=== PATIENT | female | born 1975 | race Caucasian/White ===

== ENCOUNTER 2016-06-12 15:14 | Inpatient (IN) | payer OTHER ==
--- NOTE | ~2016-06-12 | BMI ---
[facility] Nutrition Therapy DATE: 06/13/16 Patient: ELAN HENRY Physician: KING Address: [address] [place] [address] Room/Bed: [address] [place] [address], Zip: [place] [address] Admit Date: 06/12/16 Date of : [birth year] Height: 5 4 Weight: 256 116.5 HIGH BMI NOTE: DX: 40 Y.O. FEMALE ADMITTED FOR DIVERTICULITIS ANTHROPOMETRICS: 5'4", WT: 256# (116 KG), BMI: 43.9 DIET: HH INTERVENTION: 1. DIET RECOMMENDATIONS: 1. CONTINUE CURRENT DIET ORDER ABOVE TO PROMOTE GRADUAL WEIGHT LOSS TOWARDS HEALTHY BMI (19.0-25.0) OR +/-10%IBW RD WILL F/U PER PROTOCOL Respectfully, RAYNE ROWE MS, RD, LD Food and Nutritional Services [facility] cc: client file
--- NOTE | ~2016-06-12 | DS ---
Unit #: [id number] #: [id number] Patient: ELAN HENRY [id number] [address] [address] [id number] I MR#: [id number] NAME: ELAN HENRY ROOM: 306 Age: 40 Sex: F Admission Date: 06/12/2016 : 1975 Discharge Date: 06/13/2016 Attending Physician: Aminah Quintanilla M.D. Primary Care Physician: Nila Peters M.D. DISCHARGE SUMMARY ADDENDUM Time spent on discharge - 47 minutes. Dictated by... Aminah Quintanilla M.D. YESSENIA/aleshia TD: 06/15/2016 08:05 JOB #: [id number] DISCHARGE SUMMARY X Aminah Quintanilla MD X DISCHARGE SUMMARY
--- NOTE | ~2016-06-12 | DS ---
Unit #: [id number] #: [id number] Patient: ELAN HENRY [id number] [address] [place], [place] [address] [id number] I MR#: [id number] NAME: ELAN HENRY ROOM: 306 Age: 40 Sex: F Admission Date: 06/12/2016 : 1975 Discharge Date: 06/13/2016 Attending Physician: Aminah Quintanilla M.D. Primary Care Physician: Nila Peters M.D. DISCHARGE SUMMARY PRINCIPAL DIAGNOSES 1. Extensive right lower extremity deep vein thrombosis of the right femoral vein and right deep femoral vein. 2. Prothrombin gene mutation, currently off anticoagulation. 3. Hypertension. 4. Bipolar disorder. 5. Tobaccoism. 6. Morbid obesity. CONSULTANTS None. DIAGNOSTIC STUDIES IMAGING: Right lower extremity venous Doppler on June 12, 2016 with occlusive thrombus in the right femoral and deep femoral veins. Right common femoral vein is patent. Questionable occlusive thrombus in the distal right common femoral vein that is unclear. No DVT involving the calf vessels. No evidence of superficial venous thrombosis. CLINICAL HISTORY AND HOSPITAL COURSE Ms. Henry is a very nice 40-year-old female with a history of prothrombin gene mutation and multiple DVT and PE who presented to the emergency department with an approximate 5-week history of increasing right lower extremity swelling and pain. Please refer to H and P for further details. The patient is not having any chest pain, is not having any shortness of breath, nor is she having any hypoxia. Lower extremity venous Doppler in the emergency department was significant for DVT, and the patient was subsequently admitted. The patient has been maintained on therapeutic Lovenox overnight and states that her swelling and pain have improved. She still denies any chest symptoms and has not had any hypoxia. Discussion with the patient indicates she was taken off anticoagulation 6 to 7 years ago by a fish dressing machine feeder because she had not had any recent clots. However, she has had multiple DVT and PE in the past, and with her known gene mutation, she should be maintained on lifelong anticoagulation. I have discussed options with the patient, and while hesitant, she is agreeable to beginning Xarelto therapy. If she decides she does not like it, she is willing to go back to warfarin therapy on an outpatient basis. Her main concern is antidotal therapy, but I have informed her that this is currently in the process and studies indicate much less bleeding, both GI and intracranial, on the new oral anticoagulants compared to Coumadin. She will be discharged home later today. Unit #: [id number] #: [id number] Patient: ELAN HENYR DISCHARGE CONDITION Stable. DISCHARGE STATUS Discharge to home. DISCHARGE MEDICATIONS 1. Xarelto 15 mg p.o. b.i.d. for 21 days and then 20 mg p.o. daily. (I did write her 2 months worth of prescriptions.) 2. Topamax 25 mg at 7:30 p.m. 3. Cozaar 50 mg at 7:30 p.m. 4. Percocet 5/325 mg 1 tablet q.4 hours p.r.n. pain (# given 15). DISCHARGE INSTRUCTIONS Patient was instructed to refrain from any further tobacco use. She can increase her activity as tolerated, although we have discussed, perhaps, taking it easy over the next several days. FOLLOW-UP Patient will follow up with Dr. Peters in 1 week. NOTE: Time spent on discharge - 40 minutes. Dictated by... Aminah Quintanilla M.D. YESSENIA/lissa TD: 06/15/2016 07:57 JOB #: [id number] DISCHARGE SUMMARY X Aminah Quintanilla MD X DISCHARGE SUMMARY
--- NOTE | ~2016-06-12 | HP ---
Unit #: [id number] #: [id number] Patient: ELAN HENRY [id number] [address] [place], [place] [address] [id number] I MR#: [id number] NAME: ELAN HENRY ROOM: 306 Age: 40 Sex: F Admission Date: 06/12/2016 : 1975 Attending Physician: Kennedi Mark M.D. Primary Care Physician: Nila Peters M.D. HISTORY AND PHYSICAL CHIEF COMPLAINT Swelling and pain in the right leg. HISTORY OF PRESENT ILLNESS The patient is a 40-year-old female with a history of a profound prothrombin gene mutation and history of multiple DVTs and PEs in the past, off of the Coumadin for the last six to seven years, brought to the emergency room complaining of the swelling and pain of the right leg. The patient stated patient had an EP study done on May 09 for arrhythmias at the [facility] and then she started having complaining of the pain. The patient initially thought that the pain was secondary to the leg swelling and was gradually progressing to the point that she could not take it anymore. The patient denies any chest pain, shortness of breath, palpitation, headache or dizziness. The patient denies any fever. PAST MEDICAL HISTORY History of a bipolar disorder, asthma and history of prothrombin gene mutation and PEs and DVTs in the past. PAST SURGICAL HISTORY History of a cholecystectomy, and tubal ligations. HOME MEDICATIONS She is on losartan and Topamax. ALLERGIES Sulfa. FAMILY HISTORY There is no known family history of hypercoagulability. SOCIAL HISTORY The patient smokes a pack of cigarettes daily, does not consume alcohol. There is no history of recreational drug use. REVIEW OF SYMPTOMS Fourteen-point review of symptoms performed and only pertinent positive findings as described above, remaining are negative. PHYSICAL EXAMINATION GENERAL APPEARANCE: On examination the patient is lying on a bed not in acute distress. VITAL SIGNS: Temperature 97.8, pulse 95, respiratory rate 16, blood Unit #: [id number] #: [id number] Patient: ELAN HENRY pressure 123/62, sating 100% at room air. HEENT: Head atraumatic, normocephalic. Pupils equal, round and reacting to light and accommodation. Extraocular movements are intact. NECK: Supple. No JVD. LUNGS: Clear to auscultation bilaterally. No rhonchi. No wheezing. HEART: Regular rate and rhythm. ABDOMEN: Soft, positive bowel sounds. EXTREMITIES: Right lower extremity tenderness and pain in the thigh muscles and minimal erythema. NEUROLOGIC: Alert, awake, oriented. No gross focal motor deficit. PSYCHIATRIC: Mood and affect are appropriate. DIAGNOSTIC STUDIES LABORATORY DATA: Glucose 89, BUN 9, creatinine 0.8, sodium 139, potassium 3.7, chloride 104, bicarb 24, calcium 8.8, total protein 7, total bilirubin 0.3, AST 14, ALT 16, alkaline phosphatase 79 and beta hCG is negative and INR is 0.9, troponin less than 0.05, WBC 8.2, hemoglobin 13.2, hematocrit 39.4, platelets 172. IMAGING: The Doppler shows occlusive thrombus in the right femoral and deep femoral veins. ASSESSMENT 1. The right leg deep vein thrombosis with occlusive thrombus in the right femoral and deep vein thrombosis. 2. Prothrombin gene mutation. 3. Hypertension. PLAN 1. Plan to admit the patient to the inpatient. 2. Continue with anticoagulation with the Lovenox 1 mg/kg subcu q.12 h. then transition to the Coumadin. 3. Repeat the labs again in the morning. 4. Further recommendations will follow as more lab results are available. Dictated by Zeus Sparrow/patrick TD: 06/12/2016 18:05 JOB #: [id number] HISTORY AND PHYSICAL X X HISTORY AND PHYSICAL
--- NOTE | ~2016-06-12 | US85 ---
[facility] A Service of [facility] & [facility] RADIOLOGY TEXT RESULTS PATIENT: ELAN HENRY LOCATION: A 306- : [birth year] UNIT #: [id number] AGE: [address]: Aminah Quintanilla MD SEX: F ORDER DR: [id number] [facility] [address] [place], [place] [address] [id number] I MR#: [id number] Acc #: [id number] NAME: ELAN HENRY : 1975 SEX: F STUDY DATE/TIME: 06/12/2016 13:59 UNIT: A [facility] ROOM: [facility] STUDY DESCRIPTION: US LE Veins Unilat or Ltd Stdy Attending Physician: Kennedi Mark M.D. Ordering Physician: Shaun Castro M.D. Primary Care Physician: Nila Peters M.D. MEDICAL IMAGING REPORT This report is preliminary unless electronic signature is present EXAM Right lower extremity venous Doppler INDICATION Pain in the right leg since May 08 this began after an EP study. Patient also reports swelling. TECHNIQUE Burris-scale color Doppler and spectral Doppler waveform analysis was performed through the right lower extremity. FINDINGS This patient is noted to have occlusive thrombus within the right femoral vein and right deep femoral vein, salesperson corsets denotes that the right common femoral vein is patent and compressible. However on some of the images there does appear to be some extension of thrombus into the right common femoral vein. The patient's right popliteal, posterior tibial anterior tibial peroneal and saphenous veins were all patent and compressible. IMPRESSION Patient is noted to have occlusive thrombus within the right femoral and deep femoral veins. Cushion Assembler denotes the right common femoral vein is patent and compressible, however on some of the images there does appear to be occlusive thrombus within the right common femoral vein. Certainly this is not excluded, there is no evidence of DVT involving the calf vessels and there is no evidence of SVT Dictated by... Olivia Mar M.D. THIS IS AN ELECTRONICALLY VERIFIED REPORT Olivia Mar M.D. at 06/18/2016 1:15 PM [facility]. [facility] A Service of [facility] & [facility] RADIOLOGY TEXT RESULTS PATIENT: ELAN HENRY LOCATION: [facility] 306-01 : [birth year] UNIT #: [id number] AGE: [address]: Aminah Quintanilla MD SEX: F ORDER DR: SERGIO/rnr TD: 06/12/2016 21:52 JOB #: [id number] MEDICAL IMAGING REPORT COPY
[2016-06-12 14:05] LABS: BASOPHIL# 0.1 X10e3 (0-0.3); BASOPHIL% 0.9 % (0-2.5); EOSINOPHIL# 0.6 X10e3 (0-0.7); EOSINOPHIL% 6.9 % (0.0-7.0); HEMATOCRIT 39.4 % (35.0-45.0); HEMOGLOBIN 13.2 gm/dL (12.0-16.0); LYMPHOCYTE# 2.6 X10e3 (1.0-3.5); LYMPHOCYTE% 31.6 % (17.0-45.0); MEAN CELL VOLUME 83.7 FL (83-96); MEAN CORPUSCULAR HEMOGLOBIN 28.1 PG (28-34); MEAN CORPUSCULAR HGB CONC 33.6 g/dL (30-36); MEAN PLATELET VOLUME 10.3 FL (6.5-11.5); MONOCYTE# 0.3 X10e3 (0-1.0); MONOCYTE% 3.9 % (3.0-12.0); NEUTROPHIL# 4.7 X10e3 (1.5-7.1); NEUTROPHIL% 56.7 % (40-75); PLATELET COUNT 172 X10e3 (140-420); RED CELL DISTRIBUTION WIDTH 13.3 % (11.0-15.5); WHITE BLOOD COUNT 8.2 X10e3 (4.0-10.5)
[2016-06-12 14:11] LABS: DIFF IND NO
[2016-06-12 14:22] LABS: INR 0.9; PARTIAL THROMBOPLASTIN TIME 26.1 SECONDS (23.5-31.3); PROTHROMBIN TIME (PATIENT) 9.6 SECONDS (9.6-11.5)
[2016-06-12 14:29] LABS: ALKALINE PHOSPHATASE 79 U/L (32-92); ALT (SGPT) 16 U/L (10-40); AST (SGOT) 14 U/L (10-42); BILIRUBIN, DIRECT 0.1 mg/dL (0.0-0.2); BILIRUBIN,INDIRECT 0.2 mg/dL (0.0-0.9); BILIRUBIN,TOTAL 0.3 mg/dL (0.2-2.0); BLOOD UREA NITROGEN 9 mg/dL (9-23); BUN/CREATININE RATIO 11.25; CALCIUM SERUM 8.8 mg/dL (8.4-10.2); CARBON DIOXIDE 24 mmol/L (22-31); CHLORIDE 104 mmol/L (100-111); CREATININE SERUM 0.8 mg/dL (0.6-1.4); GLOM FILT RATE Estimated ABOVE60 mL/min (>60); GLUCOSE FASTING 89 mg/dL (70-110); POTASSIUM 3.7 mmol/L (3.5-5.1); SODIUM 139 mmol/L (135-145)
[~2016-06-12 15:14] MED LIST: COUMADIN; FERROUS SULFATE; LORTAB 10-5001 EACH PO
[2016-06-12] MEDS ORDERED: LOSARTAN POTASS50 MG PO (15:27)
[2016-06-12] MEDS ORDERED: TOPAMAX25 MG PO (15:27)
[2016-06-13 09:22] LABS: HEMATOCRIT 36.9 % (35.0-45.0); HEMOGLOBIN 11.9 gm/dL (12.0-16.0); MEAN CELL VOLUME 84.2 FL (83-96); MEAN CORPUSCULAR HEMOGLOBIN 27.1 PG (28-34); MEAN CORPUSCULAR HGB CONC 32.2 g/dL (30-36); MEAN PLATELET VOLUME 10.1 FL (6.5-11.5); RED BLOOD COUNT 4.39 X10e (3.90-5.30); RED CELL DISTRIBUTION WIDTH 13.5 % (11.0-15.5); WHITE BLOOD COUNT 5.8 X10e3 (4.0-10.5)
[2016-06-13 09:58] LABS: BLOOD UREA NITROGEN 7 mg/dL (9-23); BUN/CREATININE RATIO 8.75; CALCIUM SERUM 8.4 mg/dL (8.4-10.2); CARBON DIOXIDE 23 mmol/L (22-31); CHLORIDE 107 mmol/L (100-111); CREATININE SERUM 0.8 mg/dL (0.6-1.4); GLOM FILT RATE Estimated ABOVE60 mL/min (>60); GLUCOSE FASTING 111 mg/dL (70-110); POTASSIUM 3.7 mmol/L (3.5-5.1); SODIUM 136 mmol/L (135-145)
[2016-06-13] MEDS ORDERED: OXYCODONE-ACET1 EACH PO (11:11)
[2016-06-13] MEDS ORDERED: XARELTO20 MG PO (11:13)
== END 2016-06-13 11:45 | disposition home or self-care (01) | DRG 300 ==
LOC: CED 15:14 → CEDOF 16:15 → C3A PCU 17:22
PROVIDERS: Emergency Medicine; Internal Medicine
DX: I82.411 Acute embolism and thrombosis of right femoral vein (principal); D68.52 Prothrombin gene mutation; Z68.41 Body mass index [BMI] 40.0-44.9, adult; F31.9 Bipolar disorder, unspecified; J45.909 Unspecified asthma, uncomplicated; Z86.711 Personal history of pulmonary embolism; Z86.718 Personal history of other venous thrombosis and embolism; Z90.49 Acquired absence of other specified parts of digestive tract; Z98.51 Tubal ligation status; Z88.2 Allergy status to sulfonamides; F17.210 Nicotine dependence, cigarettes, uncomplicated; I10 Essential (primary) hypertension; E66.01 Morbid (severe) obesity due to excess calories
CPT/HCPCS: 80048; 80076; 84703; 85025; 85027; 85610; 85730; 93971; 99285; J1650; J2405